=== PATIENT | male | born 1990 | race Caucasian/White ===

== ENCOUNTER 2018-05-15 22:57 | Emergency (ER) | payer SELFPAY ==
[~2018-05-15] VITALS: Ht 177.8 cm; Wt 63.5 kg
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
[2018-05-15 23:42] LABS: BASOPHILS % (AUTO) 1.4 % (0.0-2.0); EOSINOPHILS % (AUTO) 2.1 % (0.0-3.0); HEMATOCRIT 43.7 % (42.0-52.0); HEMOGLOBIN 15.5 G/DL (14.2-18.0); LYMPHOCYTES % (AUTO) 26.2 % (20.0-45.0); MEAN CORPUSCULAR VOLUME 85 FL (80-99); MONOCYTES % (AUTO) 6.7 % (1.0-10.0); NEUTROPHILS % (AUTO) 63.5 % (45.0-75.0); PLATELET COUNT 434 K/UL (150-450); RED BLOOD COUNT 5.12 M/UL (4.70-6.10); RED CELL DISTRIBUTION WIDTH 10.8 % (11.6-14.8); WHITE BLOOD COUNT 7.8 K/UL (4.8-10.8)
[2018-05-15 23:47] VITALS: BP 117/62
[2018-05-16 00:13] LABS: ALANINE AMINOTRANSFERASE 24 U/L (12-78); ALBUMIN 4.1 G/DL (3.4-5.0); ALBUMIN/GLOBULIN RATIO 1.2 (1.0-2.7); ALKALINE PHOSPHATASE 64 U/L (46-116); ANION GAP 4 mmol/L (5-15); ASPARTATE AMINO TRANSFERASE 20 U/L (15-37); BILIRUBIN,TOTAL 0.3 MG/DL (0.2-1.0); BLOOD UREA NITROGEN 10 mg/dL (7-18); CARBON DIOXIDE 32 MMOL/L (21-32); CHLORIDE 105 MMOL/L (98-107); CREATININE 1.2 MG/DL (0.55-1.30); POTASSIUM 3.7 MMOL/L (3.5-5.1); SODIUM 141 MMOL/L (136-145)
[2018-05-16 01:37] VITALS: BP 117/62
--- NOTE | 2018-05-16 15:58 | Cardiology Report ---
APPROVED REPORT EKG Measurement Heart [id number] Sinus tachycardia Right atrial enlargement Borderline ECG
== END 2018-05-16 01:38 | disposition home or self-care (01) ==
LOC: EDBD 22:57 → EMR 23:15
DX: T40.4X1A Poisoning by other synthetic narcotics, accidental (unintentional), initial encounter (principal); R45.1 Restlessness and agitation; Y92.524 Gas station as the place of occurrence of the external cause; Z88.0 Allergy status to penicillin
CPT/HCPCS: 36415; 80053; 85025; 93005; 96360; 99284

== ENCOUNTER 2019-04-24 14:08 | Emergency (ER) | payer SELFPAY ==
[~2019-04-24] VITALS: Ht 170.2 cm; Wt 59.0 kg
--- NOTE | 2019-04-24 14:08 | NUR ---
BROUGHT IN BY RESCUE Asa AND SAMMY WHICH STATES HE IS SUICIDAL. PATIENT HAD A NOTE WRITTEN ONE WEEK AGO REGARDING HIS SUICIDAL THOUGHTS . PER PATIENT HE IS NOT SUICIDAL TODAY . HE IS BEEN DOING METH
--- NOTE | 2019-04-24 14:19 | NUR ---
ED Nurse Note: belongings placed in locker #2
--- NOTE | 2019-04-24 14:44 | NUR ---
patients roomates #[phone] name ivy swenson
--- NOTE | 2019-04-24 14:45 | NUR ---
left message for psychosocial rehabilitation counselor to evaluate the patient
--- NOTE | 2019-04-24 15:17 | NUR ---
food and juice provided
--- NOTE | 2019-04-24 15:51 | NUR ---
ED Nurse Note: SW at bedside
[2019-04-24 16:00] VITALS: BP 121/72
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
[2019-04-24] MEDS ORDERED: OCUFLOX5 ML LEFT EYE (16:21)
[2019-04-24] MEDS ORDERED: CEPHALEXIN500 MG ORAL (16:21)
[2019-04-24 16:34] VITALS: BP 121/72
--- NOTE | 2019-04-24 16:34 | NUR ---
ER DISCHARGE NOTE: Patient is cleared to be discharged per ERMD DR THOMPSON, pt is aox4, on room air, with stable vital signs. pt was given dc and prescription instructions, pt was able to verbalize understanding, pt id band removed without complications. pt is able to ambulate with steady gait. pt took all belongings.
--- NOTE | 2019-04-24 16:43 | Emergency Room Report ---
History of Present Illness General Chief Complaint: Suicidal Source: Patient Present Illness HPI 28-year-old male presents ED for evaluation. Patient brought in by EMS from home. Per AKANKSHA patient roommate called 911 because he found a suicide note from the patient. Patient states he wrote that note 1 week ago. [employer] confirmed from roommate that the note was written 1 week ago. Patient denies SI or HI at this time. Denies hearing voices. Does admit to history of meth abuse. States that he wrote that note 1 week ago because his roommate threatened to kick him out. Patient does note redness to his left eye and thinks he has pinkeye. Denies photophobia or blurry vision. Denies pain. Denies any discharge. No other aggravating relieving factors. Denies any other associated symptoms Allergies: Coded Allergies: PENICILLINS (Verified Allergy, Unknown, 04/24/19) Patient History Past Medical History: psych hx Past Surgical History: none Pertinent Family History: none Social History: Reports: drug use; Denies: smoking, alcohol use Immunizations: UTD Reviewed Nursing Documentation: PMH: Agreed; PSxH: Agreed Nursing Documentation-PMH Past Medical History: No Stated History Review of Systems All Other Systems: negative except mentioned in HPI Physical Exam Vital Signs Date Time Temp Pulse Resp B/P (MAP) Pulse Ox O2 Delivery O2 Flow Rate FiO2 04/24/19 14:07 98.8 108 18 130/79 (96) 99 Room Air Sp02 EP Interpretation: reviewed, normal General Appearance: no apparent distress, alert, GCS 15, non-toxic Head: normocephalic Eyes: right eye PERRL - s; left eye Scleral Injection; bilateral eye normal inspection ENT: hearing grossly normal, normal pharynx, no angioedema, normal voice Neck: normal inspection Respiratory: normal inspection Cardiovascular #1: normal inspection Gastrointestinal: normal inspection Rectal: deferred Genitourinary: no CVA tenderness Musculoskeletal: normal inspection Neurologic: alert, oriented x3, responsive, motor strength/tone normal, sensory intact, speech normal Psychiatric: depressed affect, anxious Skin: other - induration/erythema to periorbital area L eye. multiple healing blisters to arms, legs and back. Lymphatic: normal inspection Medical Decision Making Diagnostic Impression: Primary Impression: Cellulitis Qualified Codes: L03.213 - Periorbital cellulitis Additional Impressions: Conjunctivitis Qualified Codes: H10.9 - Unspecified conjunctivitis Substance abuse ER Course 28-year-old male presents ED for evaluation. Brought in by [facility] for suicide note written 1 week ago Differentialpsychosis, EtOH, substance abuse Placed on stretcher. After initial history physical exam reveals male no acute distress. Patient does appear anxious but is maintaining good eye contact. Answering questions appropriately. Has good affect. No evidence of SI or HI. Patient does have multiple angel of healing blisters to the arms and legs and back. Likely due to methamphetamine use which patient admits to. There is some scleral injection and erythema around the left eye. No evidence of orbital cellulitis. Patient afebrile, nontoxic-appearing. discussed with [employer]. They did not believe patient required a 5150 hold that the note was written 1 week ago. Patient not displaying any signs of SI or HI at this time. Patient evaluated by social work msw and she also agreed that patient did not require urgent psychiatric evaluation. Diagnosiscellulitis, conjunctivitis, substance abuse stable and discharge to home with prescriptions for Ocuflox and Keflex. Will provide referrals for substance abuse and PMD. Safe for discharge with close outpatient follow-up Last Vital Signs Date Time Temp Pulse Resp B/P (MAP) Pulse Ox O2 Delivery O2 Flow Rate FiO2 04/24/19 16:34 98.8 92 18 121/72 99 Room Air Status: improved Disposition: HOME, SELF-CARE Condition: Stable Scripts Ofloxacin (OCUFLOX) 5 Ml Drops 1 DROP LEFT EYE QID for 7 Days, ML Prov: Isaac Becerra MD 04/24/19 Cephalexin* (KEFLEX*) 500 Mg Capsule 500 MG ORAL EVERY 6 HOURS for 7 Days, CAP Prov: Isaac Becerra MD 04/24/19 Referrals: NOT CHOSEN [facility]/,[facility]ING [facility] Patient Instructions: Finding Treatment for Addiction Isaac Becerra MD Apr 24, 2019 16:43
== END 2019-04-24 16:30 | disposition home or self-care (01) ==
LOC: EDBD 14:08 → EMR 16:13
DX: L03.213 Periorbital cellulitis (principal); H10.9 Unspecified conjunctivitis; F19.10 Other psychoactive substance abuse, uncomplicated; Z88.0 Allergy status to penicillin
CPT/HCPCS: 99283